=== PATIENT | male | born 1955 | race Caucasian/White ===

== ENCOUNTER 2016-04-13 03:49 | Emergency (ER) | payer OTHER ==
[~2016-04-13] VITALS: Ht 185.4 cm; Wt 98.4 kg
--- NOTE | 2016-04-13 03:53 | ED HAND/WRIST INJURY COMPLAINT ---
History of Present Illness General Chief Complaint: Laceration Procedure Stated Complaint: LAC TO MIDDLE FINGER LEFT HAND Source: patient Exam Limitations: no limitations Vital Signs & Intake/Output Vital Signs & Intake/Output Vital Signs Date Time Temp Pulse Resp B/P Pulse O2 O2 Flow FiO2 Ox Delivery Rate 04/13 0355 96.4 71 16 150/88 96 Room Air Triage Nurses Notes Reviewed? yes Occurred: just prior to arrival Duration: hour(s): Timing: single episode today Injury Environment: work Severity: moderate Pain/Injury Location: Left: 3rd finger. Method of Injury: incised, laceration Modifying Factors: Improves With: rest. Associated Symptoms: bleeding HPI: 60 yo gentleman, in prior good health, presents with a laceration of his distal nailbed of his 3rd left digit with a utility razor knife at work. He notes that the bleeding subsided. He is able to move his finger without problem. His last tetanus was 2000. Past History Travel History Traveled to [place] past 21 day No Medical History Any Pertinent Medical History? see below for history Surgical History Surgical History: none Family History Hx Contributory? No Review of Systems Review of Systems Constitutional: Reports: no symptoms. EENTM: Reports: no symptoms. Respiratory: Reports: no symptoms. Cardiovascular: Reports: no symptoms. GI: Reports: no symptoms. Genitourinary: Reports: no symptoms. Musculoskeletal: Reports: no symptoms. Skin: Reports: no symptoms. Neurological/Psychological: Reports: no symptoms. Hematologic/Endocrine: Reports: no symptoms. Immunologic/Allergic: Reports: no symptoms. All Other Systems: Reviewed and Negative Physical Exam Physical Exam General Appearance: well developed/nourished, mild distress Head: atraumatic Eyes: Bilateral: normal appearance. Ears, Nose, Throat: normal pharynx, normal ENT inspection, hearing grossly normal Neck: normal inspection, supple Cardiovascular/Respiratory: normal breath sounds, regular rate/rhythm Back: normal inspection Hand Left: nail injury, 1 cm nail avulsion with small laceration at distal tip which is not appropriate for sutres. Hand Right: normal inspection, normal range of motion Skin: intact, normal color, warm/dry Lymphatic: no anterior cervical kei Progress Differential Diagnosis: nail avulsion vs laceration vs other. Plan of Care: wound flushed, bacitracin dressing applied. Departure Departure Disposition: HOME OR SELF CARE Condition: Stable Clinical Impression Primary Impression: Nail avulsion, finger Departure Forms: Customer Survey General Discharge Information
[2016-04-13 03:55] VITALS: BP 150/88
== END 2016-04-13 05:00 ==
LOC: ERH 03:49
DX: S61.213A Laceration without foreign body of left middle finger without damage to nail, initial encounter (principal); W26.0XXA Contact with knife, initial encounter
CPT/HCPCS: 90471; 90714